=== PATIENT | male | born 1935 | race Caucasian/White ===

== ENCOUNTER → 2017-05-11 06:27 | Day surgery (SDC) | payer MEDICARE ==
[~2017-05-11 06:27] MED LIST: Flumazenil* 0.1 MG/ML 5 ML MDV ONE; Heparin 2 UNITS/ML IVPREMIX* 3,000 ML IV ONE; Heparin(*) 1000 UNIT/ML 10 ML VIAL CATH LAB IV ONE; Iodixanol* (CONTRAST) 320 MG/ML 100 ML SDV ONE; Iohexol 350 (CONTRAST) 200 ML MDV IV ONE; LORazepam TAB(*) 1 MG ONE; Lidocaine 1% INJ* 10 MG/ML 30 ML SDV ONE; Midazolam* 1 MG/ML 10 ML VIAL (10 MG) ONE; Naloxone* 0.4 MG/ML 1 ML VIAL ONE; fentaNYL* 50 MCG/ML 2 ML VIAL (100 MCG VIAL) ONE; nitroGLYCERIN DRIP* 25,000 MCG/250 ML BTL ONE
[2017-05-11 08:19] LABS: ABS Basophils 0.1 10^3/ul (0-0.2); ABS Eosinophils 0.2 10^3/ul (0-0.6); ABS Lymphocytes 1.7 10^3/ul (1.0-4.8); ABS Monocytes 0.8 10^3/ul (0-0.8); ABS Neutrophils 4.8 10^3/ul (1.5-7.7); ABS Nucleated RBC 0 10^3/ul; Eosinophil % 2.7 % (0-6); Hematocrit 44 % (42-52); Hemoglobin 14.9 g/dl (14.0-18.0); Lymphocyte % 21.8 % (25-47); Mean Corpuscular HGB Conc 34 g/dl (31-36); Mean Corpuscular Hemoglobin 32 pg (27-31); Mean Corpuscular Volume 94 fL (80-94); Mean Platelet Volume 8.4 um3 (7.4-10.4); Nucleated Red Blood Cells % 0.1; Platelet Count 190 10^3/ul (150-450); Red Blood Count 4.61 10^6/ul (4.0-5.4); Red Cell Distribution Width 13 % (10.5-15); White Blood Count 7.6 10^3/ul (3.5-10.8)
[2017-05-11 08:29] LABS: INR 0.92 (0.77-1.02)
[2017-05-11 08:41] LABS: EGFR Non-African American 57.6 (>60)
--- NOTE | 2017-05-11 15:41 | PN ---
Progress Note - Progress Note Date of Service: 05/11/17 SOAP: Subjective: Patient sitting up without pain complaints. Ate lunch. Objective: 59, 97/72, 98% (room air), resp rate 19 NAD, AAO x 3 Abdomen is soft, nontender Left groin is soft, nontender Dressing is CDI 2+ pulses palpated at the B/L HIGH TENSION TESTER 1+ pulse at the B/L pop +doppler right VIDEO SPECIALIST and DPA 1+ pulse palpated at left DPA and VIDEO SPECIALIST Neuromuscular intact bilateral LE Assessment: 82 yom status post pelvic and RLE arteriography, revascularization of occluded distal SFA/popliteal artery, atherectomy and balloon angioplasty. Minx closure device successfully deployed at left common femoral arteriotomy. Plan: 1. D/C to home. 2. Plavix 75 mg PO daily x 6 months. 3. Aspirin 81 mg PO daily for life. 4. IR clinic RN will call patient 05/14/17. Routine Interventional Radiology follow up will include LESLY and clinic visit in 1 month.
--- NOTE | 2017-05-11 18:52 | RAD ---
CPT II Codes: 6045F Procedure(s) performed: 1. Diagnostic pelvic and right lower extremity arteriogram. 2. Revascularization of occluded distal right superficial femoral and proximal right popliteal arteries. 3. Atherectomy and balloon angioplasty of the right superficial femoral and popliteal arteries. Date of service: May 11, 2017 Indication for procedure: Claudication and rest pain. Comparison: CTA with runoff March 23, 2017 Contrast: 50 mL Visipaque 320 and 45 mL Omnipaque 300 Fluoroscopy Time: 35.7 minutes Vessels Accessed: Percutaneous access was obtained with ultrasound guidance in the left common femoral artery in the retrograde direction towards the heart. Catheter arteriography, with the catheter tip located within the lumen of the following arteries, was performed at the left external iliac artery, aorta, right common iliac artery, right external iliac artery, right superficial femoral artery, right popliteal artery and right posterior tibial artery Anesthesia: Conscious sedation with IV Fentanyl and Versed as well as local 1% lidocaine injected locally at the arteriotomy site. Conscious sedation time: Timeout: 928 hours Case end: 1238 hours Total conscious sedation time: 2 hours and 50 minutes Additional medications: * 200 mcg IA nitroglycerin injected intermittently throughout the course of the procedure to alleviate arterial spasm. * IV heparin 9500 Units to achieve a goal ACT of 250-300. * The patient received 1 mg of p.o. Ativan prior to the onset of the procedure. PROCEDURE NOTE AND INTRAPROCEDURAL IMAGING FINDINGS: Immediately prior to the procedure the patient signed consent after thoroughly discussing all risks, benefits and alternative therapies. The patient was positioned on the fluoroscopy table in the supine position and the bilateral groins were shaved, prepped and the patient was draped in standard sterile fashion. Using fluoroscopic imaging the location of the left common femoral head was marked externally with a skin marker on the patient's groin. Utilizing sonographic guidance and palpation, the left common femoral artery was cannulated overlying the femoral head with a 21-gauge needle. An ultrasound image was saved. A microwire was slowly and smoothly advanced into the common femoral artery under fluoroscopic imaging. No buckling of the wire was visualized to indicate dissection. With the wire securing percutaneous arterial access, the needle was removed and a 5-Greenlandic stiff microcatheter was advanced into the left common femoral artery. The microwire and inner stiffener were removed and a 0.035 inch [place] wire was advanced under fluoroscopic control into the aorta. The 5-Greenlandic microcatheter was removed and exchanged for a 5-Greenlandic SideArm sheath. Through the side arm of the access sheath arteriography of the left common femoral artery demonstrated an appropriate puncture of the common femoral artery above the bifurcation and below the inferior epigastric artery. Despite the prior CTA, coarse calcification in the patient's widespread vascular disease limits reliable determination of degree stenosis of the arterial system and catheter arteriography is necessary for accurate diagnosis and procedure completion. Over the wire a 5-Greenlandic pigtail catheter was advanced to the aorta and injector arteriography was performed showing ectatic curvature of the aortoiliac system. 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 There is the appearance of focal stenosis at the mid-level right external iliac artery. Brisk in-line flow otherwise passes from the aorta into the visualized bilateral proximal superficial femoral arteries. The flush catheter was removed and a 4-Greenlandic rim catheter was advanced until the tip was in the right common iliac artery. Contrast injection into the right common iliac artery confirms catheter access over the bifurcation. A wire was advanced through the 4-Greenlandic catheter as far as the proximal right superficial femoral artery. The rim catheter was removed and exchanged for a 5-Greenlandic angled tip catheter which was advanced to the right common femoral artery. An arteriogram was performed demonstrating adequate patency of the distal most right external iliac artery, right common femoral artery and the proximal portions of the femoral profundus and the right superficial femoral artery. A 260 cm length hydrophilic stiff 0.035 inch wire was advanced as far as the mid-level right superficial femoral artery. The 5-Greenlandic 11 cm access sheath was removed and over the wire a 6-Greenlandic 65 cm access sheath was advanced over the stiff wire and across the aortic bifurcation under close fluoroscopic control. Over the wire, the access sheath was advanced as far as the proximal right superficial femoral artery. With the wire still in place a second superficial femoral arteriogram through the access sheath with the tip in the proximal SFA, demonstrates abrupt occlusion of the right superficial femoral artery extending through to the proximal popliteal artery. There is hypertrophied collateralized vessels branching off of the SFA and intramuscular branches clearly providing collateral flow past the SFA/popliteal artery occlusion. Utilizing a combination of an angle-tipped 4-Greenlandic catheter and standard hydrophilic 0.035 inch wire, the wire was advanced as far as the tibioperoneal trunk. Over the wire a 4-Greenlandic glide catheter was advanced into the popliteal artery securing access. Arteriography through the 4-Greenlandic catheter tip located in the popliteal artery demonstrates a patent distal popliteal artery with in-line flow into the tibioperoneal trunk and proximal flow in the peroneal and right posterior tibial arteries. The right anterior tibial artery becomes occluded after its proximal portion. A 0.014 inch Viper wire was advanced into the mid-level right posterior tibial artery for the purpose of atherectomy. Over the wire a 2.2 mm [place] atherectomy system was advanced to the occluded right superficial femoral artery and atherectomy was performed under fluoroscopic control across the length of the occluded SFA and popliteal arteries. A total of 3 passes with the atherectomy device is were made. After atherectomy and arteriogram through the sheath with the tip in the proximal superficial femoral artery demonstrates a small amount of flow through the previously occluded SFA deemed to be inadequate to alleviate the patient's symptoms. Over the 0.014" Viper wire a 4 mm x 100 mm Nanocross balloon was advanced to the recently atherectomized SFA and popliteal artery and balloon angioplasty was performed. Next, the 4-Greenlandic catheter was advanced over the Viper wire until the tip terminating in the proximal posterior tibial artery. Through the 4-Greenlandic catheter located in the posterior tibial artery arteriography was performed demonstrating at least one focal stenosis at the mid-level right posterior tibial artery but otherwise brisk flow as far as the proximal plantar arteries. There is collateralized filling noted in the right peroneal artery. The OSCAR is occluded and with single vessel runoff provided by the IN SHOP SERVICE TECHNICIAN only it was deemed appropriate to not angioplasty the IN SHOP SERVICE TECHNICIAN out of concern for injury the low and infrapopliteal artery providing flow beyond the ankle. There is only 1 small definite focus of stenosis in the proximal right IN SHOP SERVICE TECHNICIAN and this does not appear to drastically impede filling of the artery distally. A 0.035 inch stiff hydrophilic wire was advanced until the tip was in the right posterior tibial artery. The catheter removed and over the wire a 6 mm x 120 mm paclitaxel coated InPact balloon was advanced to the previously occluded right SFA/popliteal artery and balloon angioplasty was performed. The balloon was inflated slowly to its nominal pressure and was inflated as far as just shy of "burst pressure" corresponding to a diameter with of 6.5 mm. The balloon remained inflated for a total of 5 minutes to ensure adequate drug delivery. Subsequent arteriogram through the access sheath tip located in the proximal SFA shows brisk patent flow through the previously occluded SFA with flow traveling as far as the proximal portions of the right peroneal and posterior tibial arteries. The 4-Greenlandic catheter was readvanced to the junction of the popliteal artery and tibioperoneal trunk and an arteriogram was performed again demonstrating occlusion of the right OSCAR shortly beyond its branch point and adequate filling of the peroneal and posterior tibial arteries. The 6-Greenlandic access sheath was drawn back until the tip was in the proximal portion of the right external iliac artery. Contrast was injected into the proximal left external iliac artery confirming appropriate placement. Transcatheter pressure transduction was planned to be measured at what appeared to be a stenosis at the mid-level right external iliac artery. Simultaneous pressure transduction was acquired as follows: The following pressures were simultaneously acquired (mm Hg): SBP DBP Mean Prox REIA: [id number] Distal REIA: [id number] With no pressure gradient across the apparent stenosis no intervention was performed. Over the wire the access sheath was exchanged for a new 6-Greenlandic, 11 cm length access sheath intended specifically for percutaneous arterial closure. After an appropriate resterilization of the arteriotomy and exchange for new sterile gloves, a Minx closure device was deployed at the common femoral arteriotomy and pressure held for approximately 20 minutes. There were no signs of bleeding at the percutaneous arterial access site and the site was dressed with sterile gauze and Tegaderm. The patient tolerated the procedure well and was transferred to angiography holding bay for standard post procedural observation. SUMMARY OF PROCEDURE, IMAGING FINDINGS AND INTERVENTIONS PERFORMED: 1. Diagnostic studies performed: * Arterial access was obtained at the left common femoral artery in the retrograde direction (i.e. towards the heart) with ultrasound guidance. A sonographic image was recorded. * Although there is a prior CTA with runoff, coarse calcification of the arterial system prevents reliable determination of degree stenoses and location of occlusion on CT imaging. Diagnostic catheter angiography (necessary to perform the appropriate interventions) was performed with the catheter tip in the aorta, right common iliac artery, right external iliac artery, right common femoral artery, right superficial femoral artery, right popliteal artery, right tibioperoneal trunk and right posterior tibial artery. * Catheter arteriography was performed of the complete lower aortoiliac arterial system and the entire right lower extremity as far as the mid foot. * At the beginning of the procedure arteriography was performed through the side arm of the access sheath to image the distal left external iliac artery, left common femoral artery and proximal superficial femoral artery and femoral profundus. 2. 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 * Appearance of narrowing at the mid-level right external iliac artery (also noted on the CTA) exhibited no pressure gradient and therefore no intervention was indicated. * There is an approximately 10 cm length occlusion extending from the distal right superficial femoral artery to the proximal right popliteal artery. * The right anterior tibial artery becomes occluded shortly after its branch point. * Only the right posterior tibial artery provides direct in-line flow into the foot. There is a slight focus of narrowing at the mid-level right posterior tibial artery which did not appear to cause significant flow limitation. This focus was left alone out of consideration of not complicating flow through the only infrapopliteal artery providing direct in-line flow to the foot. * The peroneal artery is patent as far as the ankle. * Arteriography performed for the purpose of deploying a percutaneous arterial closure device demonstrates adequately patent left external iliac artery, common femoral artery and proximal superficial femoral artery and femoral profundus. 3. Surgical interventions performed: * Catheter and wire revascularization of the occluded distal right superficial femoral artery and proximal right popliteal artery. * Atherectomy of the occluded right SFA/popliteal artery utilizing a 2.2 mm We[employer] atherectomy system. * Balloon angioplasty of the previously occluded arterial segment first usually a 4 mm x 100 mm Nanocross balloon followed by a 6 mm x 120 mm paclitaxel coated [employer] ImPact balloon. * Closure of the left common femoral artery was achieved with a Minx closure device followed by 15 minutes of gentle manual pressure. 4. Interpretation of interventions performed: * Final arteriography demonstrated brisk flow through the previously occluded distal right SFA and popliteal arteries with flow continuing through the proximal portions of the left posterior tibial artery and peroneal artery.. Plan: 1. Aspirin 81 mg p.o. daily for life. 2. Plavix 75 mg p.o. daily x 6 months. 3. Clinical and imaging follow-up according to standard Interventional Radiology protocol.
== END | disposition home or self-care (01) ==
LOC: CHICATH 06:27
PROVIDERS: ATTEND Radiology Diagnostic Radiology
DX: I70.213 Atherosclerosis of native arteries of extremities with intermittent claudication, bilateral legs (principal); I77.1 Stricture of artery; E03.9 Hypothyroidism, unspecified; F17.200 Nicotine dependence, unspecified, uncomplicated; I10 Essential (primary) hypertension
CPT/HCPCS: 36415; 75625; 76937; 80048; 85025; 85610; 85730; 99156; 99157; A9270-GY; C1724; C1725; C1760; C1769; C1887; C1894; C2623; J1644; J2250; J2310; J3010

== ENCOUNTER → 2017-06-29 | Day surgery (SDC) | payer MEDICARE ==
[~2017-06-29] MED LIST changes: +Heparin 2 UNITS/ML IVPREMIX* 2,000 ML IV ONE; -Heparin 2 UNITS/ML IVPREMIX* 3,000 ML IV ONE; -Heparin(*) 1000 UNIT/ML 10 ML VIAL CATH LAB IV ONE; -Iodixanol* (CONTRAST) 320 MG/ML 100 ML SDV ONE; -Midazolam* 1 MG/ML 10 ML VIAL (10 MG) ONE; +Midazolam* 1 MG/ML 5 ML VIAL (5 MG) ONE; +nitroGLYCERIN DRIP* 0 MCG/0 ML BTL ONE; -nitroGLYCERIN DRIP* 25,000 MCG/250 ML BTL ONE
[2017-06-29 08:57] LABS: ABS Basophils 0.1 10^3/ul (0-0.2); ABS Eosinophils 0.2 10^3/ul (0-0.6); ABS Lymphocytes 1.3 10^3/ul (1.0-4.8); ABS Monocytes 0.7 10^3/ul (0-0.8); ABS Nucleated RBC 0 10^3/ul; Eosinophil % 2.7 % (0-6); Hematocrit 42 % (42-52); Hemoglobin 14.5 g/dl (14.0-18.0); Lymphocyte % 20.7 % (25-47); Mean Corpuscular HGB Conc 34 g/dl (31-36); Mean Corpuscular Hemoglobin 33 pg (27-31); Mean Corpuscular Volume 95 fL (80-94); Mean Platelet Volume 8.5 um3 (7.4-10.4); Nucleated Red Blood Cells % 0.1; Platelet Count 172 10^3/ul (150-450); Red Blood Count 4.44 10^6/ul (4.0-5.4); Red Cell Distribution Width 13 % (10.5-15); White Blood Count 6.2 10^3/ul (3.5-10.8)
[2017-06-29 09:13] LABS: EGFR Non-African American 63.6 (>60)
[2017-06-29 14:02] VITALS: BP 125/74
--- NOTE | 2017-07-02 13:09 | RAD ---
CPT II Codes: G9500 Procedure(s) performed: 1. Diagnostic arteriogram of the pelvis and left lower extremity. 2. Percutaneous closure device deployed at the right common femoral arteriotomy. Date of service: June 29, 2017 Indication for procedure: Left lower extremity claudication Comparison: CTA with runoff April 10, 2017 Contrast: 70 mL Omnipaque 350 Fluoroscopy Time: 18.6 minutes Vessels Accessed: Percutaneous access was obtained with ultrasound guidance in the right common femoral artery in the retrograde direction towards the heart. Catheter arteriography, with the catheter tip located within the lumen of the following arteries, was performed at the right external iliac artery, aorta, left common iliac artery, left external iliac artery and left superficial femoral artery. Anesthesia: Conscious sedation with IV Fentanyl and Versed as well as local 1% lidocaine injected locally at the arteriotomy site. Conscious sedation time: Timeout: 1023 hours Case end: 1149 hours Total conscious sedation time: 1 hour and 26 minutes Additional medications: * The patient received 1 mg of p.o. Ativan prior to the onset of the procedure. PROCEDURE NOTE AND INTRAPROCEDURAL IMAGING FINDINGS: Immediately prior to the procedure the patient signed consent after thoroughly discussing all risks, benefits and alternative therapies. The patient was positioned on the fluoroscopy table in the supine position and the bilateral groins were shaved, prepped and the patient was draped in standard sterile fashion. Using fluoroscopic imaging the location of the right common femoral head was marked externally with a skin marker on the patient's groin. Utilizing sonographic guidance and palpation, the right common femoral artery was cannulated overlying the femoral head with an 21-gauge needle. An ultrasound image was saved. A microwire was slowly and smoothly advanced into the common femoral artery under fluoroscopic imaging. No buckling of the wire was visualized to indicate dissection. With the wire securing percutaneous arterial access, the needle was removed and an access sheath was advanced under fluoroscopic control into the common femoral artery antegrade into the proximal superficial femoral artery securing access. A 0.035 inch wire was advanced into the aorta and the access sheath was exchanged for a 5-[place]oz[place] SideArm sheath. Tortuosity of the right external iliac artery made advancing the wire and sheath somewhat difficult. Arteriography through the side arm of the sheath was acquired confirming no dissection had been made. Attempt was made to access the contralateral left common iliac artery but buckling of the catheter at the tortuous right external iliac artery prevented easy access of the contralateral artery. Over the wire the 11 cm 5-Mozambican sheath was exchanged for a 23 cm 5-Mozambican sheath to provide more support at the highly tortuous right external iliac artery. Utilizing a combination of this she, a hydrophilic wire and a C2 catheter access was obtained into the contralateral left iliac arteries. Arteriography was performed with the catheter tip in the left external iliac artery demonstrating adequate patency through the tortuous left external iliac artery into the femoral bifurcation. Utilizing a combination of a stiff hydrophilic wire and curved tip catheter access was obtained to the proximal left superficial femoral artery. A 5-[place]oz[place]ican multiside hole catheter was advanced with the tip just barely into the left superficial femoral artery and arteriography was performed. Arteriography demonstrated mild multifocal stenoses due to eccentric calcification but wide patency was recorded throughout the length of the superficial femoral artery and into the popliteal artery. There is in-line flow to the proximal infrapopliteal arteries where mild stenoses are seen at the proximal left anterior tibial artery and left posterior tibial artery. The left posterior tibial artery becomes occluded at the proximal left lower leg. Arteriography more inferiorly demonstrates slow filling but ultimate patent left anterior tibial artery. The patent left peroneal artery fills the distal left SHOE SALESMAN by a large collateral and flow is documented approximately into the left mid foot. Considering the patient's claudication only symptoms it was determined that there was minimum benefit to be achieved through revascularizing the left posterior tibial artery. Intraluminal catheter pressures were measured across the tortuous and stenotic appearing right external iliac artery according to the "pullback method". Intraluminal catheter measurements were as follows. The following pressures were acquired within a few seconds of the catheter (mm Hg): SBP DBP Mean R EIA: 120 [id number] 79 R SHIPPING CLERK/ADMIN: 120 [id number] Through the side arm of the access sheath arteriography of the right common femoral artery demonstrated an appropriate puncture of the common femoral artery above the bifurcation and below the inferior epigastric artery. After an appropriate resterilization of the arteriotomy and exchange for new sterile gloves, a Minx closure device was deployed at the common femoral arteriotomy and pressure held for approximately 15 minutes. There were no signs of bleeding at the percutaneous arterial access site and the site was dressed with sterile gauze and Tegaderm. The patient tolerated the procedure well and was transferred to angiography holding bay for standard post procedural observation. SUMMARY OF PROCEDURE, IMAGING FINDINGS AND INTERVENTIONS PERFORMED: 1. Diagnostic studies performed: * Arterial access was obtained at the right common femoral artery in the retrograde direction (i.e. towards the heart) with ultrasound guidance. A sonographic image was recorded. * Diagnostic catheter angiography (necessary to perform the appropriate interventions) was performed with the catheter tip in the right external iliac artery, aorta, left common iliac artery, left external iliac artery and left superficial femoral artery. * Catheter arteriography was performed of the lower abdominal aorta, bilateral iliac arteries and entire left lower extremity. * At the conclusion of the procedure arteriography was performed through the side arm of the access sheath to image the distal right external iliac artery, right common femoral artery and proximal superficial femoral artery and femoral profundus. 2. Interpretation of diagnostic studies performed: * Despite tortuosity and stenotic appearance of the right external iliac artery no pressure gradient was recorded and therefore no intervention was performed. * There are multiple foci of calcified stenoses in the left superficial femoral artery but no definite high grade stenosis or occlusion. * The left posterior tibial artery becomes occluded at its proximal portion filling distally by collateralized flow provided by the peroneal artery. In-line single-vessel runoff is provided by the OSCAR into the dorsalis pedis artery. * Arteriography performed for the purpose of deploying a percutaneous arterial closure device demonstrates adequately patent right external iliac artery, common femoral artery and proximal superficial femoral artery and femoral profundus. 3. Surgical interventions performed: * With essentially 2 vessel runoff provided by the OSCAR and peroneal arteries, revascularization of the left posterior tibial artery was deemed unlikely to greatly influence the patient's clinical presentation. * Closure of the right common femoral artery was achieved with a Minx closure device followed by 15 minutes of gentle manual pressure. Plan: 1. Aspirin 81 mg p.o. daily for life. 2. Plavix 75 mg p.o. daily x 6 months. 3. Clinical and imaging follow-up according to standard Interventional Radiology protocol.
== END | disposition home or self-care (01) ==
LOC: CHICATH 07:29
PROVIDERS: ATTEND Radiology Diagnostic Radiology
DX: I70.212 Atherosclerosis of native arteries of extremities with intermittent claudication, left leg (principal); Z79.82 Long term (current) use of aspirin; I10 Essential (primary) hypertension; E03.9 Hypothyroidism, unspecified; F17.210 Nicotine dependence, cigarettes, uncomplicated
CPT/HCPCS: 36415; 76937; 80053; 85025; 99156; 99157; A9270-GY; C1769; C1887; C1894; J1644; J2250; J2310; J3010

== ENCOUNTER → 2019-01-14 09:37 | Day surgery (SDC) | payer MEDICARE ==
[~2019-01-14 09:37] MED LIST changes: +Buffered Lidocaine 1% SYRIN* 1 ML/SYRINGE INTRADERM ONE; +Bupivacaine 0.25% SDV* 30 ML ONE; +EPHEDrine (Pressors)* 50 MG/ML VIAL ONE; -Flumazenil* 0.1 MG/ML 5 ML MDV ONE; -Heparin 2 UNITS/ML IVPREMIX* 2,000 ML IV ONE; -Iohexol 350 (CONTRAST) 200 ML MDV IV ONE; -LORazepam TAB(*) 1 MG ONE; +Lactated Ringers 1000 ML Bag* 1,000 ML IV SCH; -Lidocaine 1% INJ* 10 MG/ML 30 ML SDV ONE; +Lidocaine 1% w EPI 1:100,000* MDV 20 ML VIAL ONE; -Midazolam* 1 MG/ML 5 ML VIAL (5 MG) ONE; -Naloxone* 0.4 MG/ML 1 ML VIAL ONE; +Propofol* 10 MG/ML 20 ML BTL ONE; +ceFAZolin 2 GM in NS PREMIX(*) 2 GM/100 ML BAG IVPB ONE; -nitroGLYCERIN DRIP* 0 MCG/0 ML BTL ONE
[2019-01-14 15:02] VITALS: BP 114/62
== END | disposition home or self-care (01) ==
LOC: OR 09:37
PROVIDERS: ATTEND Plastic Surgery
DX: C44.42 Squamous cell carcinoma of skin of scalp and neck (principal); I10 Essential (primary) hypertension; J44.9 Chronic obstructive pulmonary disease, unspecified; E78.5 Hyperlipidemia, unspecified; C61 Malignant neoplasm of prostate; E03.9 Hypothyroidism, unspecified; E66.9 Obesity, unspecified; F17.210 Nicotine dependence, cigarettes, uncomplicated
CPT/HCPCS: 88305; 88331; 88332; J0690; J2704; J3010; J3490